=== PATIENT | female | born 1965 ===

== ENCOUNTER 2017-05-26 10:34 | Emergency (ER) | payer OTHER ==
[2017-05-26 10:34] VITALS: BMI 28.1
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
[2017-05-26 12:35] VITALS: BP 134/84; PULSE 84; RESP 16; TEMP 98
[2017-05-26 15:33] VITALS: O2SAT 96
== END 2017-05-26 12:59 | disposition home or self-care (01) ==
LOC: C.ER 10:34
DX: F91.9 Conduct disorder, unspecified (principal)